=== PATIENT | female | born 1950 | race Caucasian/White ===

== ENCOUNTER 2017-04-02 19:08 | Emergency (ER) | payer MEDICARE, BC ==
[2017-04-02 19:19] VITALS: BP 141/85
--- NOTE | 2017-04-02 19:32 | EDM.PDOC ---
ED HPI Trauma - General Chief Complaint: Lower Extremity Injury/Pain Stated Complaint: left foot injury Time Seen by Provider: 04/02/17 19:22 Source: Reports: Patient, Family, RN, RN notes reviewed History Limitations: Reports: No limitations - History of Present Illness INITIAL COMMENTS - FREE TEXT/NARRATIVE: Patient presents emergency room at [facility] complaining of left foot pain. The patient states that she was trying to move a ladder that was up against the house. The weight of the ladder was too much for the patient and the ladder fell off to the left side landing on top of patient's left foot. The patient states she did not have immediate pain. The patient states she was able to continue about her day. The patient states over the past hour the pain developed. No previous injury or trauma to left foot. No previous surgeries. Symptom Onset Date: 04/02/17 Occurred When: this afternoon Occurred Where: home Method of Injury: direct blow Severity: moderate Pain/Injury Location: Reports: lower extremity, left Consciousness: Reports: no loss of consciousness, remembers incident, remembers coming to hosp Associated Symptoms: Reports: no other symptoms Allergies/ADRs: Allergies nitroglycerin Adverse Reaction (Verified 04/02/17 19:18) Headache enviromental allergens Allergy (Uncoded 04/02/17 19:18) Cannot Remember Home Medications: Ambulatory Orders Acetaminophen [Tylenol Extra Strength] 1,000 mg PO BID PRN 02/05/14 [Confirmed 04/02/17] Aspirin [Halfprin] 81 mg PO DAILY 02/05/14 [Confirmed 04/02/17] Bisacodyl [Woman's Laxative] 5 mg PO DAILY PRN 02/05/14 [Confirmed 04/02/17] Cyclobenzaprine [Flexeril] 10 mg PO BEDTIME 02/05/14 [Confirmed 04/02/17] Docusate Sodium [Colace] 100 mg PO BID 02/05/14 [Confirmed 04/02/17] Fluticasone Propionate [Flonase] 1 - 2 sprays NS DAILY PRN 02/05/14 [Confirmed 04/02/17] Herbal Drugs [Colon Herbal Cleanser] 1 each PO BEDTIME PRN 02/05/14 [Confirmed 04/02/17] Levothyroxine 25 mcg PO ACBRK 02/05/14 [Confirmed 04/02/17] Lisinopril [Prinivil] 10 mg PO DAILY 02/05/14 [Confirmed 04/02/17] Loratadine [Claritin] 10 mg PO DAILY 02/05/14 [Confirmed 04/02/17] Multivits,Ca,Minerals/Iron/FA [Thera-M] 1 each PO DAILY 02/05/14 [Confirmed 06/12] Omeprazole [Prilosec] 20 mg PO DAILY 02/05/14 [Confirmed 04/02/17] SUMAtriptan [Imitrex] 50 mg PO ASDIRECTED PRN 02/05/14 [Confirmed 04/02/17] Simvastatin [Zocor] 20 mg PO BEDTIME 02/05/14 [Confirmed 04/02/17] Venlafaxine [Venlafaxine ER] 150 mg PO DAILY 02/05/14 [Confirmed 04/02/17] Past Medical History Cardiovascular History: Reports: High cholesterol, Hypertension Gastrointestinal History: Reports: GERD Psychiatric History: Reports: Depression - Past Surgical History Female Surgical History: Reports: Hysterectomy Musculoskeletal Surgical History: Reports: Other (see below) Other Musculoskeletal Surgeries/Procedures:: surgery to left forearm Social & Family History - Tobacco Use Smoking Status *Q: Current Every Day Smoker Years of Tobacco use: 20 Packs/Tins Daily: 0.5 - Alcohol Use Days Per Week of Alcohol Use: 0 - Recreational Drug Use Recreational Drug Use: No Review of Systems - Review of Systems Review Of Systems: See Below Constitutional: Denies: chills, fever, weakness Respiratory: Reports: No Symptoms. Denies: Shortness of Breath, Cough Cardiovascular: Reports: no symptoms. Denies: chest pain, palpitations Musculoskeletal: Reports: foot pain (Left) Skin: Reports: no symptoms Neurological: Reports: No Symptoms. Denies: Numbness, Paresthesia, Tingling Trauma Exam - Physical Exam Exam: See Below Exam Limited By: No limitations General Appearance: Reports: alert, no apparent distress Head: Reports: atraumatic, normocephalic Respiratory Exam: Reports: no respiratory distress, lungs clear, normal breath sounds Cardiovascular: Reports: regular rate, rhythm Extremities: Reports: bony-point tenderness, pain with movement, tenderness Neurologic: Reports: alert, oriented x 3 Skin: Reports: Normal color, Warm/dry - Julia Coma Score Best Eye Response (Julia): (4) open spontaneously Best Verbal Response (Julia): (5) oriented Best Motor Response (Julia): (6) obeys commands [place] Total: 15 Course - Vital Signs Last Recorded V/S: Last Vital Signs Temp 36.7 C 04/02/17 19:15 Pulse 93 04/02/17 19:15 Resp 16 04/02/17 19:15 BP 141/85 H 04/02/17 19:15 Pulse Ox 97 04/02/17 19:15 - Orders/Labs/Meds Orders: Active Orders 24 hr Category Date Time Status Foot Comp Min 3V Lt [CR] Stat Exams 04/02/17 19:27 Taken DME for Discharge [COMM] Routine Oth 04/02/17 19:49 Ordered - Radiology Interpretation Free Text/Narrative:: No acute fracture or dislocation on plain film - await official Radiology over read Departure - Departure Time of Disposition: 19:50 Disposition: Home, Self-Care 01 Condition: good Clinical Impression: Foot pain, left Injury of foot, left Qualifiers: Encounter type: initial encounter Qualified Code(s): S99.922A - Unspecified injury of left foot, initial encounter Instructions: Contusion Referrals: Karen Wakefield DO [Primary Care Provider] - Forms: ED Department Discharge Additional Instructions: 1. Stay well hydrated and rest 2. Wear MORALES Wrap at all times 3. Rest, elevate, and ice left foot several times a day 4. May alternate Tylenol/Advil as needed 5. See your Primary as symptoms warrant - Problem List Review Problem List Initiated/Reviewed/Updated: Yes - My Orders Last 24 Hours: My Active Orders 04/02/17 19:27 Foot Comp Min 3V Lt [CR] Stat 04/02/17 19:49 DME for Discharge [COMM] Routine - Assessment/Plan Last 24 Hours: My Active Orders 04/02/17 19:27 Foot Comp Min 3V Lt [CR] Stat 04/02/17 19:49 DME for Discharge [COMM] Routine
== END 2017-04-02 20:03 | disposition home or self-care (01) ==
LOC: VM.ED 19:08
DX: S99.922A Unspecified injury of left foot, initial encounter (principal); K21.9 Gastro-esophageal reflux disease without esophagitis; E78.00 Pure hypercholesterolemia, unspecified; I10 Essential (primary) hypertension; F32.9 Major depressive disorder, single episode, unspecified; F17.210 Nicotine dependence, cigarettes, uncomplicated; W11.XXXA Fall on and from ladder, initial encounter; Y93.89 Activity, other specified; Y92.009 Unspecified place in unspecified non-institutional (private) residence as the place of occurrence of the external cause; Z88.8 Allergy status to other drugs, medicaments and biological substances; Z79.899 Other long term (current) drug therapy
CPT/HCPCS: 73630-LT; 99282-GF; 99283

== ENCOUNTER → 2019-07-24 | Outpatient (CLI) | payer MEDICARE, BC ==
--- NOTE | 2019-07-24 14:25 | CR ---
[id number] RAD/DEXA Scan Hip Pelvis Spine EXAM: DEXA Scan Hip Pelvis Spine CLINICAL DATA: Senile osteoporosis. COMPARISON: 07/18/2017. FINDINGS: Current lumbar spine bone mineral density from L1-L4: 1.239 g/cm2. Prior bone mineral density: 1.129 g/cm2. Current lumbar spine T score: 0.4. Prior T score: -0.5. Mean femoral neck bone mineral density: 0.748 g/cm2. Prior bone mineral density: 0.736 g/cm2. Current T score: -2.1. Prior T score: -2.2. IMPRESSION: 1. Osteopenia. Fracture risk is moderate. 2. 10 year probability of major osteoporotic fracture is 21.0% and probability of hip fracture is 6.3%. Moises Vega DO 07/24/19 1423 Thank you for allowing us to participate in the care of your patient.
== END ==
LOC: VM.DI 12:53
PROVIDERS: ATTEND Internal Medicine
DX: M81.0 Age-related osteoporosis without current pathological fracture (principal); M85.859 Other specified disorders of bone density and structure, unspecified thigh
CPT/HCPCS: 77080